=== PATIENT | female | born 1965 | race Caucasian/White ===

== ENCOUNTER 2016-07-10 22:28 | Emergency (ER) | payer BC ==
[2016-07-10 23:31] VITALS: BP 115/76
== END 2016-07-10 23:31 | disposition home or self-care (01) ==
LOC: ED 22:28
DX: S61.211A Laceration without foreign body of left index finger without damage to nail, initial encounter (principal); W26.0XXA Contact with knife, initial encounter; Y93.G3 Activity, cooking and baking; Y92.000 Kitchen of unspecified non-institutional (private) residence as the place of occurrence of the external cause
CPT/HCPCS: 90715; A4550